=== PATIENT | male | born 1990 | race Caucasian/White ===

== ENCOUNTER → 2020-05-14 | Emergency (ER) | payer OTHER ==
[~2020-05-14] VITALS: Ht 167.6 cm; Wt 104.3 kg
[~2020-05-14] MED LIST: CLOTRIMAZOLE/BE15 GM TOP; DICLOFENAC SODI75 MG PO; INTESTINEX680 MG PO; ZANTAC150 MG PO
== END | disposition home or self-care (01) ==
LOC: ER 12:51
DX: M62.838 Other muscle spasm (principal); M54.2 Cervicalgia

== ENCOUNTER 2020-07-07 08:05 | Emergency (ER) | payer OTHER ==
[~2020-07-07] VITALS: Ht 167.6 cm; Wt 97.5 kg
[2020-07-07] MEDS ORDERED: DOLOGEN CAPLET1 EACH PO (18:24)
== END 2020-07-07 18:36 | disposition home or self-care (01) ==
LOC: ER 08:05
DX: B34.9 Viral infection, unspecified (principal); Z03.818 Encounter for observation for suspected exposure to other biological agents ruled out